=== PATIENT | female | born 1985 | race African-American/Black ===

== ENCOUNTER 2017-07-10 17:19 | Emergency (ER) | payer OTHER, MEDICAID ==
[~2017-07-10] VITALS: Ht 162.6 cm; Wt 95.3 kg
[2017-07-10] MEDS ORDERED: cloNIDine HCL 0.1 MG TAB ONE (17:30)
[2017-07-10 19:50] VITALS: BP 143/87
[2017-07-10] MEDS ORDERED: KETOROLAC TROMETH 60MG/2ML VIAL IM ONE (20:30)
== END 2017-07-10 20:43 | disposition home or self-care (01) ==
LOC: ER 17:19
DX: M54.31 Sciatica, right side (principal); M79.604 Pain in right leg; J45.909 Unspecified asthma, uncomplicated
CPT/HCPCS: 96372; 99283; J1885

== ENCOUNTER 2017-07-11 08:46 | Emergency (ER) | payer OTHER, MEDICAID ==
[~2017-07-11] VITALS: Ht 162.6 cm; Wt 95.3 kg
[2017-07-11 09:44] VITALS: BP 140/88
== END 2017-07-11 10:11 | disposition home or self-care (01) ==
LOC: ER 08:46
DX: M54.31 Sciatica, right side (principal); J45.909 Unspecified asthma, uncomplicated